=== PATIENT | female | born 1995 | race Two or more races ===

== ENCOUNTER 2017-02-17 17:34 | Emergency (ER) | payer SELFPAY ==
[~2017-02-17] VITALS: Ht 160 cm; Wt 50.0 kg
[2017-02-17] MEDS ORDERED: IBUPROFEN 800 MG TABLET PO ONE (20:15)
[2017-02-17 20:20] VITALS: BP 120/64
== END 2017-02-17 20:50 | disposition home or self-care (01) ==
LOC: EDBD 17:38 → EDSEX 17:38 → EMS 17:38
DX: H66.93 Otitis media, unspecified, bilateral (principal); H60.93 Unspecified otitis externa, bilateral
CPT/HCPCS: 99283